=== PATIENT | male | born 1960 | race Caucasian/White ===

== ENCOUNTER 2020-09-14 17:43 | Inpatient (IN) | payer OTHER ==
[2020-09-14 19:16] LABS: BASO % 1.2 % (0-2.0); EOS % 1.5 % (0-4.5); HEMOGLOBIN 15.3 GM/dL (11.7-16.9); LYMPH % 14.6 % (8-40); MCH 30.3 pg (25.7-33.7); MCHC 34.7 g/dl (32.0-35.9); MEAN CELL VOLUME 87.3 fl (80-96); MONO % 6.3 % (3.8-10.2); NEUT % 76.4 % (42.8-82.8); RBC 5.04 M/mm3 (4.00-5.60); RDW 13.9 % (11.9-15.9)
[2020-09-14 19:25] LABS: INR 1.35 (0.83-1.09); PROTHROMBIN TIME (PATIENT) 16.5 SEC (9.7-13.0)
[2020-09-14 19:27] LABS: ACTIVATED PTT 18.9 SECONDS (25.2-36.5)
[2020-09-14 19:40] LABS: CHLORIDE 80 mmol/L (98-107); SODIUM 124 mmol/L (136-145)
[2020-09-14 19:42] LABS: ALBUMIN 4.2 g/dl (3.4-5.0); ANION GAP 10 MMOL/L (8-16); BLOOD UREA NITROGEN 18.6 mg/dL (7-18); CALCIUM 9.2 mg/dL (8.5-10.1); CO2 34 mmol/L (21-32); MAGNESIUM 2.9 mg/dL (1.8-2.4)
[2020-09-14 19:45] LABS: CREATININE 1.9 mg/dL (0.55-1.3); SGOT/AST 93 U/L (15-37); SGPT/ALT 97 U/L (13-61)
[2020-09-14 19:47] LABS: BILIRUBIN,TOTAL 1.4 mg/dL (0.2-1); TOT PROT 8.5 g/dl (6.4-8.2)
[2020-09-14 19:48] LABS: ALK PHOS 80 U/L (45-117)
[2020-09-14 19:52] LABS: MEAN PLT VOLUME 11.3 fl (7.5-11.1); PLATELET COUNT 248 K/MM3 (134-434); PLATELET ESTIMATE ADEQUATE
[2020-09-14] MEDS ORDERED: SODIUM CHLORIDE 0.9% 500 ML INFUS.BAG IV ONE (19:54)
[2020-09-14 20:08] LABS: GLUCOSE,RANDOM 684 mg/dL (74-106)
[2020-09-14] MEDS ORDERED: INSULIN (NOVOLOG) ASPART 100 UNITS/ML 10ML VIAL SQ STA (20:10)
[2020-09-14] MEDS ORDERED: LACTATED RINGERS SOLUTION 1,000 ML/1,000 ML INFUS.BAG IV STA ×2 (20:11→23:40)
[2020-09-14] MEDS ORDERED: IBUPROFEN 400 MG TABLET (FP) PO ONE (20:21)
[2020-09-14 20:57] LABS: VENOUS BASE EXCESS 7.9 mmol/L (-2-2); VENOUS O2 SATURATION 24.5 % (70-80); VENOUS PCO2 60.8 mmHg (38-52); VENOUS PH 7.381 (7.310-7.410)
[2020-09-14] MEDS ORDERED: INSULIN (NOVOLOG) ASPART 100 UNITS/ML 10ML VIAL SQ ONE (23:23)
[2020-09-15 01:33] LABS: PH,URINE 5.5 (5.0-8.0); URINE APPEARANCE CLEAR; URINE BILIRUBIN NEGATIVE (NEGATIVE); URINE COLOR YELLOW; URINE GLUCOSE (UA) 3+ (NEGATIVE); URINE KETONE NEGATIVE (NEGATIVE); URINE LEUK ESTERASE NEGATIVE (NEGATIVE); URINE NITRITE NEGATIVE (NEGATIVE); URINE PROTEIN NEGATIVE (NEGATIVE)
[2020-09-15 03:00] VITALS: BMI 36.4
[2020-09-15] MEDS ORDERED: SODIUM CHLORIDE 1,000 ML IV SCH (06:15)
[2020-09-15] MEDS ORDERED: INSULIN (NOVOLOG) ASPART 100 UNITS/ML 10ML VIAL SQ SCH (07:00)
[2020-09-15] MEDS: INSULIN SLIDING SCALE (NOVOLOG) 1 VIAL SQ SCH ×4 (07:04→21:14)
[2020-09-15 07:05] LABS: HEMATOCRIT 40.5 % (35.4-49); HEMOGLOBIN 14.3 GM/dL (11.7-16.9); MCHC 35.3 g/dl (32.0-35.9); MEAN PLT VOLUME 10.8 fl (7.5-11.1); PLATELET COUNT 162 K/MM3 (134-434); RBC 4.76 M/mm3 (4.00-5.60); RDW 13.9 % (11.9-15.9); WHITE BLOOD COUNT 8.2 K/mm3 (4.0-10.0)
[2020-09-15 07:22] LABS: ALBUMIN 3.8 g/dl (3.4-5.0)
[2020-09-15 07:23] LABS: CALCIUM 8.7 mg/dL (8.5-10.1); MAGNESIUM 2.3 mg/dL (1.8-2.4)
[2020-09-15 07:24] LABS: BLOOD UREA NITROGEN 16.2 mg/dL (7-18)
[2020-09-15 07:25] LABS: PHOSPHOROUS 3.1 mg/dL (2.5-4.9)
[2020-09-15 07:26] LABS: CREATININE 1.4 mg/dL (0.55-1.3)
[2020-09-15 07:27] LABS: N-TERMINAL BNP 194.7 pg/ml (5-125)
[2020-09-15 07:29] LABS: TOT PROT 7.4 g/dl (6.4-8.2)
[2020-09-15] MEDS: TAMSULOSIN HCL 0.4 MG CAP PO SCH (08:10)
[2020-09-15] MEDS: PANTOPRAZOLE 40 MG TABLET PO SCH (08:10)
[2020-09-15] MEDS ORDERED: BUDESONIDE/FORMETEROL FUMARATE 80/4.5 mcg INHALER IH SCH (08:30)
[2020-09-15] MEDS ORDERED: ALBUTEROL SO4 HFA INHALER IH SCH (08:30)
[2020-09-15 09:01] LABS: COCAINE, UR NEGATIVE ng/ml (CUTOFF=300); OPIATES, URI NEGATIVE ng/ml (CUTOFF=300); URINE BARBITURATES NEGATIVE ng/ml (CUTOFF=200); URINE BENZODIAZEPINES NEGATIVE ng/ml (CUTOFF=200)
[2020-09-15 09:02] LABS: PHENCYCLIDINE,URINE NEGATIVE ng/ml (CUTOFF=25)
[2020-09-15 09:03] LABS: URINE AMPHETAMINES NEGATIVE ng/ml (CUTOFF=500)
[2020-09-15 09:19] LABS: METHADONE, UR POSITIVE ng/ml (CUTOFF=300)
[2020-09-15] MEDS: POTASSIUM CHLORIDE TABS 20 MEQ TABLET.ER (FP) PO SCH ×2 (09:37→13:15)
[2020-09-15] MEDS ORDERED: PATIENT'S OWN MEDICATION (NON-FORMULARY) (Omeprazole [Omeprazole] 40 MG) PO SCH (10:00)
[2020-09-15] MEDS: ALBUTEROL SO4 HFA INHALER IH SCH ×2 (11:42→17:08)
[2020-09-15] MEDS: BUDESONIDE/FORMETEROL FUMARATE 80/4.5 mcg INHALER IH SCH ×2 (11:43→21:18)
[2020-09-15] MEDS: INSULIN (NOVOLOG) ASPART 100 UNITS/ML 10ML VIAL SQ ONE ×2 (11:57→11:58)
[2020-09-15] MEDS: LISINOPRIL 5 MG TABLET PO SCH (13:15)
[2020-09-15] MEDS ORDERED: INSULIN (NOVOLOG) ASPART 100 UNITS/ML 10ML VIAL SQ ONE (13:43)
[2020-09-15] MEDS: SODIUM CHLORIDE 1,000 ML IV SCH (15:18)
[2020-09-15 16:21] LABS: BLOOD UREA NITROGEN 18.2 mg/dL (7-18); CALCIUM 8.8 mg/dL (8.5-10.1)
[2020-09-15 16:25] LABS: CREATININE 1.5 mg/dL (0.55-1.3)
[2020-09-15] MEDS ORDERED: PT OWN MED DRAWER 7, Y5N ONE (17:01)
[2020-09-15] MEDS: RIVAROXABAN 10 MG TABLET PO SCH (17:08)
[2020-09-15 18:21] LABS: POTASSIUM 3.4 mmol/L (3.5-5.1)
[2020-09-15 18:23] LABS: CALCIUM 8.6 mg/dL (8.5-10.1)
[2020-09-15 18:24] LABS: BLOOD UREA NITROGEN 19.4 mg/dL (7-18)
[2020-09-15 18:27] LABS: CREATININE 1.4 mg/dL (0.55-1.3)
[2020-09-15] MEDS: INSULIN (LEVEMIR) 100 UNITS/ML UNITS SQ SCH (21:13)
[2020-09-15] MEDS: ATORVASTATIN CA 80 MG TABLET (FP) PO SCH (21:14)
[2020-09-15] MEDS ORDERED: INSULIN (LEVEMIR) 100 UNITS/ML UNITS SQ SCH (22:00)
[2020-09-16] MEDS: ALBUTEROL SO4 HFA INHALER IH SCH ×5 (00:24→23:32)
[2020-09-16] MEDS ORDERED: METHADONE HCL 5 MG TABLET PO SCH (06:00)
[2020-09-16] MEDS: PANTOPRAZOLE 40 MG TABLET PO SCH (06:37)
[2020-09-16] MEDS: INSULIN SLIDING SCALE (NOVOLOG) 1 VIAL SQ SCH ×4 (06:39→21:11)
[2020-09-16] MEDS: INSULIN (LEVEMIR) 100 UNITS/ML UNITS SQ SCH ×2 (07:27→21:11)
[2020-09-16 07:32] LABS: BASO % 0.7 % (0-2.0); EOS % 2.4 % (0-4.5); HEMATOCRIT 37.2 % (35.4-49); HEMOGLOBIN 12.9 GM/dL (11.7-16.9); LYMPH % 20.1 % (8-40); MCH 29.7 pg (25.7-33.7); MCHC 34.5 g/dl (32.0-35.9); MEAN PLT VOLUME 10.9 fl (7.5-11.1); MONO % 8.5 % (3.8-10.2); NEUT % 68.3 % (42.8-82.8); PLATELET COUNT 111 K/MM3 (134-434); RBC 4.33 M/mm3 (4.00-5.60); RDW 13.8 % (11.9-15.9); WHITE BLOOD COUNT 5.6 K/mm3 (4.0-10.0)
[2020-09-16 07:46] LABS: POTASSIUM 3.6 mmol/L (3.5-5.1)
[2020-09-16 07:55] LABS: ALBUMIN 3.4 g/dl (3.4-5.0); CALCIUM 8.5 mg/dL (8.5-10.1)
[2020-09-16 07:56] LABS: BLOOD UREA NITROGEN 20.4 mg/dL (7-18); MAGNESIUM 2.5 mg/dL (1.8-2.4)
[2020-09-16 07:59] LABS: CREATININE 1.2 mg/dL (0.55-1.3)
[2020-09-16 08:00] LABS: BILIRUBIN,TOTAL 0.8 mg/dL (0.2-1); TOT PROT 6.9 g/dl (6.4-8.2)
[2020-09-16] MEDS ORDERED: POTASSIUM CHLORIDE TABS 20 MEQ TABLET.ER (FP) PO ONE (09:00)
[2020-09-16] MEDS: TAMSULOSIN HCL 0.4 MG CAP PO SCH (09:45)
[2020-09-16] MEDS: LISINOPRIL 5 MG TABLET PO SCH (09:46)
[2020-09-16] MEDS: BUDESONIDE/FORMETEROL FUMARATE 80/4.5 mcg INHALER IH SCH ×2 (09:46→21:03)
[2020-09-16 09:56] LABS: PLATELET ESTIMATE DECREASED
[2020-09-16] MEDS: METHADONE 40 MG, METHADONE 10 MG, METHADONE 5 MG PO SCH (10:36)
[2020-09-16] MEDS: SODIUM CHLORIDE 1,000 ML IV SCH (17:36)
[2020-09-16] MEDS: RIVAROXABAN 10 MG TABLET PO SCH (18:13)
[2020-09-16] MEDS: ATORVASTATIN CA 80 MG TABLET (FP) PO SCH (21:02)
[2020-09-17] MEDS: SODIUM CHLORIDE 1,000 ML IV SCH (03:55)
[2020-09-17] MEDS: ALBUTEROL SO4 HFA INHALER IH SCH ×3 (05:26→17:59)
[2020-09-17] MEDS: METHADONE 40 MG, METHADONE 10 MG, METHADONE 5 MG PO SCH ×3 (05:26→21:52)
[2020-09-17] MEDS: PANTOPRAZOLE 40 MG TABLET PO SCH (06:00)
[2020-09-17] MEDS: INSULIN SLIDING SCALE (NOVOLOG) 1 VIAL SQ SCH ×4 (06:04→21:59)
[2020-09-17] MEDS: INSULIN (LEVEMIR) 100 UNITS/ML UNITS SQ SCH ×2 (06:04→21:59)
[2020-09-17 07:49] LABS: BASO % 0.6 % (0-2.0); EOS % 2.9 % (0-4.5); HEMATOCRIT 36.5 % (35.4-49); HEMOGLOBIN 12.3 GM/dL (11.7-16.9); LYMPH % 26.9 % (8-40); MCH 29.2 pg (25.7-33.7); MCHC 33.6 g/dl (32.0-35.9); MEAN CELL VOLUME 86.9 fl (80-96); MEAN PLT VOLUME 10.4 fl (7.5-11.1); MONO % 9.1 % (3.8-10.2); NEUT % 60.5 % (42.8-82.8); PLATELET COUNT 85 K/MM3 (134-434); RDW 14.4 % (11.9-15.9); WHITE BLOOD COUNT 3.2 K/mm3 (4.0-10.0)
[2020-09-17 08:18] LABS: POTASSIUM 3.3 mmol/L (3.5-5.1)
[2020-09-17 08:26] LABS: ALBUMIN 3.1 g/dl (3.4-5.0); BLOOD UREA NITROGEN 16.2 mg/dL (7-18); MAGNESIUM 2.4 mg/dL (1.8-2.4)
[2020-09-17 08:27] LABS: BILIRUBIN,TOTAL 0.6 mg/dL (0.2-1); TOT PROT 6.4 g/dl (6.4-8.2)
[2020-09-17 08:28] LABS: CALCIUM 8.3 mg/dL (8.5-10.1)
[2020-09-17] MEDS: TAMSULOSIN HCL 0.4 MG CAP PO SCH (09:49)
[2020-09-17] MEDS: LISINOPRIL 5 MG TABLET PO SCH (09:49)
[2020-09-17] MEDS: BUDESONIDE/FORMETEROL FUMARATE 80/4.5 mcg INHALER IH SCH ×2 (10:09→21:53)
[2020-09-17] MEDS ORDERED: POTASSIUM CHLORIDE ORAL LIQUID 20 MEQ/15 ML PO ONE (11:51)
[2020-09-17] MEDS: POTASSIUM CHLORIDE 10 MEQ in SODIUM CHLORIDE 1,000 ML IV SCH (14:09)
[2020-09-17] MEDS ORDERED: PT OWN MED DRAWER 7, Y5N ONE (16:39)
[2020-09-17] MEDS ORDERED: INSULIN (NOVOLOG) ASPART 100 UNITS/ML 10ML VIAL ONE (16:58)
[2020-09-17] MEDS: RIVAROXABAN 10 MG TABLET PO SCH (17:00)
[2020-09-17] MEDS ORDERED: METHADONE HCL 40 MG DISPERSABLE TABLET ONE (21:18)
[2020-09-17] MEDS ORDERED: METHADONE HCL 5 MG TABLET ONE (21:19)
[2020-09-17] MEDS ORDERED: METHADONE HCL 10 MG TABLET ONE (21:19)
[2020-09-17] MEDS: ATORVASTATIN CA 80 MG TABLET (FP) PO SCH (21:53)
[2020-09-18] MEDS: ALBUTEROL SO4 HFA INHALER IH SCH ×3 (00:20→13:07)
[2020-09-18] MEDS: INSULIN (LEVEMIR) 100 UNITS/ML UNITS SQ SCH ×2 (06:12→21:28)
[2020-09-18] MEDS: PANTOPRAZOLE 40 MG TABLET PO SCH (06:12)
[2020-09-18] MEDS: INSULIN SLIDING SCALE (NOVOLOG) 1 VIAL SQ SCH ×4 (06:13→21:29)
[2020-09-18 07:38] LABS: POTASSIUM 3.8 mmol/L (3.5-5.1)
[2020-09-18 07:46] LABS: CALCIUM 8.1 mg/dL (8.5-10.1)
[2020-09-18 07:48] LABS: BLOOD UREA NITROGEN 13.7 mg/dL (7-18); MAGNESIUM 2.2 mg/dL (1.8-2.4)
[2020-09-18 07:50] LABS: CREATININE 0.9 mg/dL (0.55-1.3)
[2020-09-18 07:51] LABS: BILIRUBIN,TOTAL 0.6 mg/dL (0.2-1)
[2020-09-18 08:02] LABS: BASO % 0.6 % (0-2.0); EOS % 3.8 % (0-4.5); HEMATOCRIT 34.5 % (35.4-49); HEMOGLOBIN 11.5 GM/dL (11.7-16.9); LYMPH % 31.6 % (8-40); MCH 29.5 pg (25.7-33.7); MCHC 33.5 g/dl (32.0-35.9); MEAN CELL VOLUME 88.2 fl (80-96); MEAN PLT VOLUME 10.3 fl (7.5-11.1); MONO % 11.1 % (3.8-10.2); NEUT % 52.9 % (42.8-82.8); PLATELET COUNT 77 K/MM3 (134-434); RBC 3.91 M/mm3 (4.00-5.60); RDW 14.5 % (11.9-15.9); WHITE BLOOD COUNT 2.8 K/mm3 (4.0-10.0)
[2020-09-18 09:04] LABS: INR 1.15 (0.83-1.09); PROTHROMBIN TIME (PATIENT) 14.1 SEC (9.7-13.0)
[2020-09-18] MEDS: POTASSIUM CHLORIDE 10 MEQ in SODIUM CHLORIDE 1,000 ML IV SCH (09:08)
[2020-09-18] MEDS: TAMSULOSIN HCL 0.4 MG CAP PO SCH (09:08)
[2020-09-18] MEDS: LISINOPRIL 5 MG TABLET PO SCH (09:08)
[2020-09-18] MEDS: BUDESONIDE/FORMETEROL FUMARATE 80/4.5 mcg INHALER IH SCH ×2 (09:09→21:31)
[2020-09-18] MEDS: LACTATED RINGERS SOLUTION 1,000 ML/1,000 ML INFUS.BAG IV SCH (13:05)
[2020-09-18] MEDS: RIVAROXABAN 10 MG TABLET PO SCH (17:06)
[2020-09-18] MEDS ORDERED: METHADONE HCL 40 MG DISPERSABLE TABLET ONE (20:59)
[2020-09-18] MEDS ORDERED: METHADONE HCL 10 MG TABLET ONE (21:00)
[2020-09-18] MEDS ORDERED: METHADONE HCL 5 MG TABLET ONE (21:00)
[2020-09-18] MEDS: METHADONE 40 MG, METHADONE 10 MG, METHADONE 5 MG PO SCH (21:25)
[2020-09-18] MEDS: ATORVASTATIN CA 80 MG TABLET (FP) PO SCH (21:28)
[2020-09-19] MEDS: INSULIN SLIDING SCALE (NOVOLOG) 1 VIAL SQ SCH ×4 (06:36→22:12)
[2020-09-19] MEDS: ALBUTEROL SO4 HFA INHALER IH SCH ×5 (06:51→23:09)
[2020-09-19] MEDS: INSULIN (LEVEMIR) 100 UNITS/ML UNITS SQ SCH ×2 (06:53→22:11)
[2020-09-19] MEDS: TAMSULOSIN HCL 0.4 MG CAP PO SCH (09:50)
[2020-09-19] MEDS: LISINOPRIL 5 MG TABLET PO SCH (09:50)
[2020-09-19] MEDS: BUDESONIDE/FORMETEROL FUMARATE 80/4.5 mcg INHALER IH SCH ×2 (09:50→22:10)
[2020-09-19] MEDS ORDERED: INSULIN (NOVOLOG) ASPART 100 UNITS/ML 10ML VIAL ONE (11:06)
[2020-09-19 11:23] LABS: BASO % 0.3 % (0-2.0); EOS % 0.8 % (0-4.5); HEMATOCRIT 36.4 % (35.4-49); HEMOGLOBIN 12.1 GM/dL (11.7-16.9); LYMPH % 7.8 % (8-40); MCHC 33.3 g/dl (32.0-35.9); MEAN CELL VOLUME 90.2 fl (80-96); MEAN PLT VOLUME 10.2 fl (7.5-11.1); MONO % 5.7 % (3.8-10.2); NEUT % 85.4 % (42.8-82.8); PLATELET COUNT 69 K/MM3 (134-434); RBC 4.03 M/mm3 (4.00-5.60); RDW 14.9 % (11.9-15.9); WHITE BLOOD COUNT 3.2 K/mm3 (4.0-10.0)
[2020-09-19 11:49] LABS: POTASSIUM 4.7 mmol/L (3.5-5.1)
[2020-09-19 11:50] LABS: ALBUMIN 3.1 g/dl (3.4-5.0); BLOOD UREA NITROGEN 17.2 mg/dL (7-18); CALCIUM 8.6 mg/dL (8.5-10.1)
[2020-09-19 11:51] LABS: MAGNESIUM 1.8 mg/dL (1.8-2.4)
[2020-09-19 11:55] LABS: BILIRUBIN,TOTAL 0.9 mg/dL (0.2-1); TOT PROT 6.3 g/dl (6.4-8.2)
[2020-09-19 17:26] LABS: PH,URINE 8.5 (5.0-8.0); URINE APPEARANCE CLEAR; URINE BILIRUBIN NEGATIVE (NEGATIVE); URINE COLOR YELLOW; URINE GLUCOSE (UA) 2+ (NEGATIVE); URINE KETONE NEGATIVE (NEGATIVE); URINE LEUK ESTERASE NEGATIVE (NEGATIVE); URINE NITRITE NEGATIVE (NEGATIVE); URINE PROTEIN NEGATIVE (NEGATIVE)
[2020-09-19] MEDS ORDERED: PT OWN MED DRAWER 7, Y5N ONE (17:40)
[2020-09-19] MEDS: LACTATED RINGERS SOLUTION 1,000 ML/1,000 ML INFUS.BAG IV SCH (17:41)
[2020-09-19] MEDS: RIVAROXABAN 10 MG TABLET PO SCH (17:41)
[2020-09-19] MEDS ORDERED: METHADONE HCL 5 MG TABLET ONE (21:02)
[2020-09-19] MEDS ORDERED: METHADONE HCL 40 MG DISPERSABLE TABLET ONE (21:02)
[2020-09-19] MEDS ORDERED: METHADONE HCL 10 MG TABLET ONE (21:03)
[2020-09-19] MEDS: METHADONE 40 MG, METHADONE 10 MG, METHADONE 5 MG PO SCH (22:09)
[2020-09-19] MEDS: ATORVASTATIN CA 80 MG TABLET (FP) PO SCH (22:10)
[2020-09-19] MEDS ORDERED: ACETAMINOPHEN 325 MG TABLET (FP) PO ONE (23:00)
[2020-09-20] MEDS ORDERED: VANCOMYCIN 1 GM in D5W (PRE-DOCKED) 1,000 MG/250 ML IVPB ONE (02:19)
[2020-09-20] MEDS: INSULIN (LEVEMIR) 100 UNITS/ML UNITS SQ SCH ×2 (06:37→22:02)
[2020-09-20] MEDS: ALBUTEROL SO4 HFA INHALER IH SCH ×3 (06:37→17:20)
[2020-09-20] MEDS: INSULIN SLIDING SCALE (NOVOLOG) 1 VIAL SQ SCH ×4 (06:37→22:16)
[2020-09-20 07:27] LABS: POTASSIUM 4.1 mmol/L (3.5-5.1)
[2020-09-20 07:30] LABS: CALCIUM 8.3 mg/dL (8.5-10.1)
[2020-09-20 07:31] LABS: ALBUMIN 2.9 g/dl (3.4-5.0); MAGNESIUM 1.8 mg/dL (1.8-2.4)
[2020-09-20 07:33] LABS: CREATININE 0.9 mg/dL (0.55-1.3)
[2020-09-20 07:35] LABS: TOT PROT 5.9 g/dl (6.4-8.2)
[2020-09-20 07:42] LABS: BASO % 0.8 % (0-2.0); EOS % 1.6 % (0-4.5); HEMATOCRIT 33.7 % (35.4-49); HEMOGLOBIN 11.2 GM/dL (11.7-16.9); LYMPH % 20.2 % (8-40); MCH 29.5 pg (25.7-33.7); MCHC 33.3 g/dl (32.0-35.9); MEAN CELL VOLUME 88.7 fl (80-96); NEUT % 63.4 % (42.8-82.8); PLATELET COUNT 65 K/MM3 (134-434); RBC 3.81 M/mm3 (4.00-5.60); RDW 14.2 % (11.9-15.9); WHITE BLOOD COUNT 2.4 K/mm3 (4.0-10.0)
[2020-09-20] MEDS: LISINOPRIL 5 MG TABLET PO SCH (09:36)
[2020-09-20] MEDS: TAMSULOSIN HCL 0.4 MG CAP PO SCH (09:36)
[2020-09-20] MEDS: BUDESONIDE/FORMETEROL FUMARATE 80/4.5 mcg INHALER IH SCH ×2 (09:37→21:58)
[2020-09-20] MEDS: VANCOMYCIN 1,250 MG in DEXTROSE 5%-WATER - 250 ML IVPB SCH ×2 (12:50→22:52)
[2020-09-20] MEDS ORDERED: SODIUM CHLORIDE 1,000 ML IV STA (14:12)
[2020-09-20] MEDS: ACETAMINOPHEN/CAFFEINE/BUTALBITAL 1 TAB PO PRN (14:41)
[2020-09-20] MEDS: RIVAROXABAN 10 MG TABLET PO SCH (18:01)
[2020-09-20] MEDS ORDERED: METHADONE HCL 5 MG TABLET ONE (21:00)
[2020-09-20] MEDS ORDERED: METHADONE HCL 40 MG DISPERSABLE TABLET ONE (21:00)
[2020-09-20] MEDS ORDERED: METHADONE HCL 10 MG TABLET ONE (21:00)
[2020-09-20] MEDS ORDERED: INSULIN (NOVOLOG) ASPART 100 UNITS/ML 10ML VIAL ONE (21:01)
[2020-09-20] MEDS: METHADONE 40 MG, METHADONE 10 MG, METHADONE 5 MG PO SCH (21:58)
[2020-09-20] MEDS: ATORVASTATIN CA 80 MG TABLET (FP) PO SCH (21:59)
[2020-09-21] MEDS: ALBUTEROL SO4 HFA INHALER IH SCH ×5 (00:15→23:32)
[2020-09-21] MEDS: INSULIN (LEVEMIR) 100 UNITS/ML UNITS SQ SCH ×2 (06:30→21:38)
[2020-09-21] MEDS: INSULIN SLIDING SCALE (NOVOLOG) 1 VIAL SQ SCH ×4 (06:32→21:39)
[2020-09-21 08:13] LABS: BASO % 0.7 % (0-2.0); EOS % 2.7 % (0-4.5); HEMATOCRIT 35.6 % (35.4-49); HEMOGLOBIN 11.6 GM/dL (11.7-16.9); LYMPH % 18.2 % (8-40); MCH 29.1 pg (25.7-33.7); MCHC 32.7 g/dl (32.0-35.9); MEAN CELL VOLUME 88.9 fl (80-96); MEAN PLT VOLUME 9.7 fl (7.5-11.1); MONO % 12.8 % (3.8-10.2); NEUT % 65.6 % (42.8-82.8); PLATELET COUNT 70 K/MM3 (134-434); RDW 14.6 % (11.9-15.9); WHITE BLOOD COUNT 2.6 K/mm3 (4.0-10.0)
[2020-09-21 08:39] LABS: POTASSIUM 3.9 mmol/L (3.5-5.1)
[2020-09-21 08:45] LABS: ALBUMIN 2.9 g/dl (3.4-5.0); BLOOD UREA NITROGEN 12.6 mg/dL (7-18); CALCIUM 8.5 mg/dL (8.5-10.1)
[2020-09-21 08:46] LABS: MAGNESIUM 1.8 mg/dL (1.8-2.4)
[2020-09-21 08:48] LABS: CREATININE 0.9 mg/dL (0.55-1.3)
[2020-09-21 08:49] LABS: BILIRUBIN,TOTAL 0.8 mg/dL (0.2-1); TOT PROT 6.3 g/dl (6.4-8.2)
[2020-09-21] MEDS: LISINOPRIL 5 MG TABLET PO SCH (09:51)
[2020-09-21] MEDS: TAMSULOSIN HCL 0.4 MG CAP PO SCH (09:51)
[2020-09-21] MEDS: BUDESONIDE/FORMETEROL FUMARATE 80/4.5 mcg INHALER IH SCH ×2 (09:52→21:41)
[2020-09-21] MEDS: ACETAMINOPHEN/CAFFEINE/BUTALBITAL 1 TAB PO PRN (09:55)
[2020-09-21] MEDS: VANCOMYCIN 1,250 MG in DEXTROSE 5%-WATER - 250 ML IVPB SCH ×2 (11:42→23:13)
[2020-09-21] MEDS: RIVAROXABAN 10 MG TABLET PO SCH (18:08)
[2020-09-21] MEDS ORDERED: PT OWN MED DRAWER 7, Y5N ONE ×2 (19:06→23:05)
[2020-09-21] MEDS ORDERED: METHADONE HCL 10 MG TABLET ONE (20:45)
[2020-09-21] MEDS ORDERED: METHADONE HCL 5 MG TABLET ONE (20:45)
[2020-09-21] MEDS ORDERED: METHADONE HCL 40 MG DISPERSABLE TABLET ONE (20:45)
[2020-09-21] MEDS: METHADONE 40 MG, METHADONE 10 MG, METHADONE 5 MG PO SCH (21:37)
[2020-09-21] MEDS: ATORVASTATIN CA 80 MG TABLET (FP) PO SCH (21:37)
[2020-09-22] MEDS: ALBUTEROL SO4 HFA INHALER IH SCH ×4 (05:28→22:59)
[2020-09-22] MEDS: INSULIN SLIDING SCALE (NOVOLOG) 1 VIAL SQ SCH ×4 (06:02→21:01)
[2020-09-22] MEDS: INSULIN (LEVEMIR) 100 UNITS/ML UNITS SQ SCH ×2 (06:03→21:01)
[2020-09-22] MEDS ORDERED: INSULIN (NOVOLOG) ASPART 100 UNITS/ML 10ML VIAL ONE ×2 (06:13→20:07)
[2020-09-22 08:07] LABS: BASO % 0.7 % (0-2.0); EOS % 4.2 % (0-4.5); HEMATOCRIT 33.4 % (35.4-49); HEMOGLOBIN 11.1 GM/dL (11.7-16.9); LYMPH % 26.1 % (8-40); MCH 29.2 pg (25.7-33.7); MCHC 33.2 g/dl (32.0-35.9); MEAN CELL VOLUME 87.9 fl (80-96); MEAN PLT VOLUME 9.3 fl (7.5-11.1); MONO % 13.7 % (3.8-10.2); NEUT % 55.3 % (42.8-82.8); PLATELET COUNT 80 K/MM3 (134-434); RDW 14.6 % (11.9-15.9); WHITE BLOOD COUNT 2.6 K/mm3 (4.0-10.0)
[2020-09-22 08:19] LABS: POTASSIUM 4.3 mmol/L (3.5-5.1)
[2020-09-22 08:23] LABS: ALBUMIN 2.8 g/dl (3.4-5.0); BLOOD UREA NITROGEN 13.4 mg/dL (7-18)
[2020-09-22 08:24] LABS: CALCIUM 8.7 mg/dL (8.5-10.1)
[2020-09-22 08:28] LABS: BILIRUBIN,TOTAL 0.5 mg/dL (0.2-1); TOT PROT 5.9 g/dl (6.4-8.2)
[2020-09-22] MEDS ORDERED: PT OWN MED DRAWER 7, Y5N ONE ×4 (09:11→22:34)
[2020-09-22] MEDS: TAMSULOSIN HCL 0.4 MG CAP PO SCH (09:13)
[2020-09-22] MEDS: ACETAMINOPHEN/CAFFEINE/BUTALBITAL 1 TAB PO PRN (09:14)
[2020-09-22] MEDS: LISINOPRIL 5 MG TABLET PO SCH (09:15)
[2020-09-22] MEDS: BUDESONIDE/FORMETEROL FUMARATE 80/4.5 mcg INHALER IH SCH ×2 (09:23→21:03)
[2020-09-22] MEDS: VANCOMYCIN 1,250 MG in DEXTROSE 5%-WATER - 250 ML IVPB SCH ×2 (11:21→23:00)
[2020-09-22] MEDS: RIVAROXABAN 10 MG TABLET PO SCH (17:32)
[2020-09-22] MEDS ORDERED: METHADONE HCL 5 MG TABLET ONE (20:05)
[2020-09-22] MEDS ORDERED: METHADONE HCL 40 MG DISPERSABLE TABLET ONE (20:06)
[2020-09-22] MEDS ORDERED: METHADONE HCL 10 MG TABLET ONE (20:06)
[2020-09-22] MEDS: ATORVASTATIN CA 80 MG TABLET (FP) PO SCH (21:02)
[2020-09-22] MEDS: METHADONE 40 MG, METHADONE 10 MG, METHADONE 5 MG PO SCH (21:02)
[2020-09-23] MEDS: INSULIN (LEVEMIR) 100 UNITS/ML UNITS SQ SCH ×2 (06:07→21:12)
[2020-09-23] MEDS: ALBUTEROL SO4 HFA INHALER IH SCH ×3 (06:09→17:11)
[2020-09-23] MEDS: INSULIN SLIDING SCALE (NOVOLOG) 1 VIAL SQ SCH ×4 (06:11→21:13)
[2020-09-23] MEDS ORDERED: PT OWN MED DRAWER 7, Y5N ONE ×3 (08:45→21:03)
[2020-09-23] MEDS: LISINOPRIL 5 MG TABLET PO SCH (09:52)
[2020-09-23] MEDS: TAMSULOSIN HCL 0.4 MG CAP PO SCH (09:52)
[2020-09-23] MEDS: BUDESONIDE/FORMETEROL FUMARATE 80/4.5 mcg INHALER IH SCH ×2 (09:53→21:26)
[2020-09-23] MEDS: NAFCILLIN - 2 GM in DEXTROSE 5%-WATER - 100 ML IVPB SCH ×3 (11:27→21:09)
[2020-09-23] MEDS ORDERED: INSULIN (NOVOLOG) ASPART 100 UNITS/ML 10ML VIAL ONE ×2 (11:29→21:02)
[2020-09-23] MEDS ORDERED: ACETAMINOPHEN/CAFFEINE/BUTALBITAL 1 TAB PO PRN (15:19)
[2020-09-23] MEDS: RIVAROXABAN 10 MG TABLET PO SCH (17:11)
[2020-09-23] MEDS ORDERED: METHADONE HCL 40 MG DISPERSABLE TABLET ONE (21:01)
[2020-09-23] MEDS ORDERED: METHADONE HCL 5 MG TABLET ONE (21:01)
[2020-09-23] MEDS ORDERED: METHADONE HCL 10 MG TABLET ONE (21:01)
[2020-09-23] MEDS: ATORVASTATIN CA 80 MG TABLET (FP) PO SCH (21:09)
[2020-09-23] MEDS: METHADONE 40 MG, METHADONE 10 MG, METHADONE 5 MG PO SCH (21:10)
[2020-09-24] MEDS: ALBUTEROL SO4 HFA INHALER IH SCH ×4 (00:53→17:17)
[2020-09-24] MEDS ORDERED: PT OWN MED DRAWER 7, Y5N ONE ×2 (01:58→06:14)
[2020-09-24] MEDS: NAFCILLIN - 2 GM in DEXTROSE 5%-WATER - 100 ML IVPB SCH ×4 (02:00→20:55)
[2020-09-24] MEDS: INSULIN SLIDING SCALE (NOVOLOG) 1 VIAL SQ SCH ×4 (06:01→21:01)
[2020-09-24] MEDS: INSULIN (LEVEMIR) 100 UNITS/ML UNITS SQ SCH ×2 (06:02→21:01)
[2020-09-24] MEDS ORDERED: INSULIN (NOVOLOG) ASPART 100 UNITS/ML 10ML VIAL ONE ×2 (06:15→11:26)
[2020-09-24 08:47] LABS: EOS % 3.5 % (0-4.5); HEMATOCRIT 38.6 % (35.4-49); HEMOGLOBIN 12.6 GM/dL (11.7-16.9); LYMPH % 30.8 % (8-40); MCH 28.8 pg (25.7-33.7); MCHC 32.6 g/dl (32.0-35.9); MEAN CELL VOLUME 88.2 fl (80-96); MEAN PLT VOLUME 9.1 fl (7.5-11.1); MONO % 9.4 % (3.8-10.2); NEUT % 55.3 % (42.8-82.8); PLATELET COUNT 142 K/MM3 (134-434); RBC 4.37 M/mm3 (4.00-5.60); RDW 14.5 % (11.9-15.9); WHITE BLOOD COUNT 4.5 K/mm3 (4.0-10.0)
[2020-09-24] MEDS: TAMSULOSIN HCL 0.4 MG CAP PO SCH (09:00)
[2020-09-24 09:02] LABS: POTASSIUM 4.7 mmol/L (3.5-5.1)
[2020-09-24 09:03] LABS: CALCIUM 9.3 mg/dL (8.5-10.1)
[2020-09-24 09:04] LABS: ALBUMIN 3.1 g/dl (3.4-5.0); BLOOD UREA NITROGEN 17.3 mg/dL (7-18); MAGNESIUM 2.2 mg/dL (1.8-2.4)
[2020-09-24 09:07] LABS: CREATININE 1.1 mg/dL (0.55-1.3)
[2020-09-24 09:08] LABS: BILIRUBIN,TOTAL 0.5 mg/dL (0.2-1); TOT PROT 6.9 g/dl (6.4-8.2)
[2020-09-24] MEDS: LISINOPRIL 5 MG TABLET PO SCH (09:16)
[2020-09-24] MEDS: BUDESONIDE/FORMETEROL FUMARATE 80/4.5 mcg INHALER IH SCH ×2 (09:18→21:02)
[2020-09-24] MEDS: RIVAROXABAN 10 MG TABLET PO SCH (17:16)
[2020-09-24] MEDS ORDERED: METHADONE HCL 10 MG TABLET ONE (20:46)
[2020-09-24] MEDS ORDERED: METHADONE HCL 5 MG TABLET ONE (20:46)
[2020-09-24] MEDS ORDERED: METHADONE HCL 40 MG DISPERSABLE TABLET ONE (20:47)
[2020-09-24] MEDS: METHADONE 40 MG, METHADONE 10 MG, METHADONE 5 MG PO SCH (21:00)
[2020-09-24] MEDS: ATORVASTATIN CA 80 MG TABLET (FP) PO SCH (21:00)
[2020-09-25] MEDS: ALBUTEROL SO4 HFA INHALER IH SCH ×4 (00:20→17:19)
[2020-09-25] MEDS: NAFCILLIN - 2 GM in DEXTROSE 5%-WATER - 100 ML IVPB SCH ×4 (02:42→21:28)
[2020-09-25] MEDS: INSULIN (LEVEMIR) 100 UNITS/ML UNITS SQ SCH ×2 (06:12→21:29)
[2020-09-25] MEDS: INSULIN SLIDING SCALE (NOVOLOG) 1 VIAL SQ SCH ×4 (06:13→21:29)
[2020-09-25 06:39] LABS: BASO % 0.7 % (0-2.0); HEMATOCRIT 38.2 % (35.4-49); HEMOGLOBIN 12.6 GM/dL (11.7-16.9); LYMPH % 28.9 % (8-40); MCH 29.2 pg (25.7-33.7); MEAN CELL VOLUME 88.5 fl (80-96); MEAN PLT VOLUME 9.4 fl (7.5-11.1); MONO % 8.3 % (3.8-10.2); NEUT % 59.1 % (42.8-82.8); PLATELET COUNT 143 K/MM3 (134-434); RBC 4.32 M/mm3 (4.00-5.60); RDW 14.2 % (11.9-15.9); WHITE BLOOD COUNT 4.8 K/mm3 (4.0-10.0)
[2020-09-25 06:46] LABS: POTASSIUM 4.4 mmol/L (3.5-5.1)
[2020-09-25 06:52] LABS: CALCIUM 8.7 mg/dL (8.5-10.1)
[2020-09-25 06:53] LABS: ALBUMIN 3.1 g/dl (3.4-5.0)
[2020-09-25 06:54] LABS: MAGNESIUM 1.9 mg/dL (1.8-2.4)
[2020-09-25 06:57] LABS: BILIRUBIN,TOTAL 0.7 mg/dL (0.2-1)
[2020-09-25 06:58] LABS: TOT PROT 6.6 g/dl (6.4-8.2)
[2020-09-25] MEDS: TAMSULOSIN HCL 0.4 MG CAP PO SCH (08:45)
[2020-09-25] MEDS ORDERED: PT OWN MED DRAWER 7, Y5N ONE ×3 (10:03→17:18)
[2020-09-25] MEDS: LISINOPRIL 5 MG TABLET PO SCH (10:09)
[2020-09-25] MEDS: BUDESONIDE/FORMETEROL FUMARATE 80/4.5 mcg INHALER IH SCH ×2 (10:10→21:29)
[2020-09-25] MEDS ORDERED: INSULIN (NOVOLOG) ASPART 100 UNITS/ML 10ML VIAL ONE ×2 (16:22→21:14)
[2020-09-25] MEDS: RIVAROXABAN 10 MG TABLET PO SCH (17:19)
[2020-09-25] MEDS ORDERED: METHADONE HCL 10 MG TABLET ONE (21:13)
[2020-09-25] MEDS ORDERED: METHADONE HCL 40 MG DISPERSABLE TABLET ONE (21:13)
[2020-09-25] MEDS ORDERED: METHADONE HCL 5 MG TABLET ONE (21:13)
[2020-09-25] MEDS: METHADONE 40 MG, METHADONE 10 MG, METHADONE 5 MG PO SCH (21:28)
[2020-09-25] MEDS: ATORVASTATIN CA 80 MG TABLET (FP) PO SCH (21:29)
[2020-09-26] MEDS: ALBUTEROL SO4 HFA INHALER IH SCH ×4 (00:03→17:18)
[2020-09-26] MEDS: NAFCILLIN - 2 GM in DEXTROSE 5%-WATER - 100 ML IVPB SCH ×4 (02:11→21:21)
[2020-09-26 06:25] LABS: BASO % 0.7 % (0-2.0); EOS % 2.3 % (0-4.5); HEMATOCRIT 39.3 % (35.4-49); HEMOGLOBIN 12.7 GM/dL (11.7-16.9); LYMPH % 27.3 % (8-40); MCH 28.9 pg (25.7-33.7); MCHC 32.4 g/dl (32.0-35.9); MEAN CELL VOLUME 89.2 fl (80-96); MONO % 7.4 % (3.8-10.2); NEUT % 62.3 % (42.8-82.8); PLATELET COUNT 147 K/MM3 (134-434); RBC 4.41 M/mm3 (4.00-5.60); RDW 14.2 % (11.9-15.9); WHITE BLOOD COUNT 4.4 K/mm3 (4.0-10.0)
[2020-09-26 06:36] LABS: POTASSIUM 4.2 mmol/L (3.5-5.1)
[2020-09-26] MEDS: INSULIN (LEVEMIR) 100 UNITS/ML UNITS SQ SCH ×2 (06:37→21:33)
[2020-09-26] MEDS: INSULIN SLIDING SCALE (NOVOLOG) 1 VIAL SQ SCH ×4 (06:38→21:26)
[2020-09-26 06:40] LABS: CALCIUM 9.3 mg/dL (8.5-10.1)
[2020-09-26 06:41] LABS: ALBUMIN 3.2 g/dl (3.4-5.0); MAGNESIUM 2.4 mg/dL (1.8-2.4)
[2020-09-26 06:44] LABS: CREATININE 1.1 mg/dL (0.55-1.3)
[2020-09-26 06:45] LABS: BILIRUBIN,TOTAL 0.7 mg/dL (0.2-1)
[2020-09-26] MEDS: TAMSULOSIN HCL 0.4 MG CAP PO SCH (09:41)
[2020-09-26] MEDS ORDERED: PT OWN MED DRAWER 7, Y5N ONE ×3 (09:41→21:06)
[2020-09-26] MEDS: LISINOPRIL 5 MG TABLET PO SCH (09:41)
[2020-09-26] MEDS: BUDESONIDE/FORMETEROL FUMARATE 80/4.5 mcg INHALER IH SCH ×2 (09:42→21:25)
[2020-09-26] MEDS ORDERED: INSULIN (NOVOLOG) ASPART 100 UNITS/ML 10ML VIAL ONE (12:15)
[2020-09-26] MEDS: RIVAROXABAN 10 MG TABLET PO SCH (17:17)
[2020-09-26] MEDS ORDERED: METHADONE HCL 10 MG TABLET ONE (20:54)
[2020-09-26] MEDS ORDERED: METHADONE HCL 40 MG DISPERSABLE TABLET ONE (20:54)
[2020-09-26] MEDS ORDERED: METHADONE HCL 5 MG TABLET ONE (20:54)
[2020-09-26] MEDS: ATORVASTATIN CA 80 MG TABLET (FP) PO SCH (21:21)
[2020-09-26] MEDS: METHADONE 40 MG, METHADONE 10 MG, METHADONE 5 MG PO SCH (21:21)
[2020-09-27] MEDS: ALBUTEROL SO4 HFA INHALER IH SCH ×4 (00:30→17:06)
[2020-09-27] MEDS ORDERED: PT OWN MED DRAWER 7, Y5N ONE ×2 (02:37→20:53)
[2020-09-27] MEDS: NAFCILLIN - 2 GM in DEXTROSE 5%-WATER - 100 ML IVPB SCH ×4 (02:42→21:12)
[2020-09-27 06:32] LABS: BASO % 0.9 % (0-2.0); EOS % 2.5 % (0-4.5); HEMATOCRIT 39.1 % (35.4-49); HEMOGLOBIN 12.9 GM/dL (11.7-16.9); LYMPH % 25.2 % (8-40); MCH 29.2 pg (25.7-33.7); MEAN CELL VOLUME 88.6 fl (80-96); MEAN PLT VOLUME 9.1 fl (7.5-11.1); NEUT % 63.4 % (42.8-82.8); PLATELET COUNT 166 K/MM3 (134-434); RBC 4.41 M/mm3 (4.00-5.60); RDW 14.2 % (11.9-15.9); WHITE BLOOD COUNT 4.7 K/mm3 (4.0-10.0)
[2020-09-27] MEDS: INSULIN SLIDING SCALE (NOVOLOG) 1 VIAL SQ SCH ×4 (06:38→21:13)
[2020-09-27] MEDS: INSULIN (LEVEMIR) 100 UNITS/ML UNITS SQ SCH ×2 (06:40→21:17)
[2020-09-27 07:04] LABS: POTASSIUM 3.9 mmol/L (3.5-5.1)
[2020-09-27 07:09] LABS: CALCIUM 8.8 mg/dL (8.5-10.1)
[2020-09-27 07:10] LABS: ALBUMIN 3.4 g/dl (3.4-5.0); BLOOD UREA NITROGEN 16.2 mg/dL (7-18); MAGNESIUM 2.2 mg/dL (1.8-2.4)
[2020-09-27 07:13] LABS: CREATININE 1.2 mg/dL (0.55-1.3)
[2020-09-27 07:14] LABS: BILIRUBIN,TOTAL 0.6 mg/dL (0.2-1)
[2020-09-27] MEDS: BUDESONIDE/FORMETEROL FUMARATE 80/4.5 mcg INHALER IH SCH ×2 (09:07→21:13)
[2020-09-27] MEDS: TAMSULOSIN HCL 0.4 MG CAP PO SCH (09:07)
[2020-09-27] MEDS: LISINOPRIL 5 MG TABLET PO SCH (09:07)
[2020-09-27] MEDS ORDERED: INSULIN (NOVOLOG) ASPART 100 UNITS/ML 10ML VIAL ONE (10:30)
[2020-09-27] MEDS: RIVAROXABAN 10 MG TABLET PO SCH (17:06)
[2020-09-27] MEDS ORDERED: METHADONE HCL 5 MG TABLET ONE (20:52)
[2020-09-27] MEDS ORDERED: METHADONE HCL 10 MG TABLET ONE (20:52)
[2020-09-27] MEDS ORDERED: METHADONE HCL 40 MG DISPERSABLE TABLET ONE (20:52)
[2020-09-27] MEDS: ATORVASTATIN CA 80 MG TABLET (FP) PO SCH (21:11)
[2020-09-27] MEDS: METHADONE 40 MG, METHADONE 10 MG, METHADONE 5 MG PO SCH (21:11)
[2020-09-28] MEDS: ALBUTEROL SO4 HFA INHALER IH SCH ×4 (00:07→17:48)
[2020-09-28] MEDS ORDERED: PT OWN MED DRAWER 7, Y5N ONE ×2 (03:36→20:33)
[2020-09-28] MEDS: NAFCILLIN - 2 GM in DEXTROSE 5%-WATER - 100 ML IVPB SCH ×4 (03:37→20:36)
[2020-09-28] MEDS: INSULIN SLIDING SCALE (NOVOLOG) 1 VIAL SQ SCH ×4 (05:59→23:01)
[2020-09-28] MEDS: INSULIN (LEVEMIR) 100 UNITS/ML UNITS SQ SCH ×2 (06:02→22:40)
[2020-09-28] MEDS ORDERED: INSULIN (NOVOLOG) ASPART 100 UNITS/ML 10ML VIAL ONE (06:44)
[2020-09-28 06:52] LABS: EOS % 2.2 % (0-4.5); HEMOGLOBIN 12.8 GM/dL (11.7-16.9); LYMPH % 25.3 % (8-40); MCH 29.4 pg (25.7-33.7); MCHC 32.9 g/dl (32.0-35.9); MEAN CELL VOLUME 89.3 fl (80-96); MEAN PLT VOLUME 9.1 fl (7.5-11.1); MONO % 7.4 % (3.8-10.2); NEUT % 64.1 % (42.8-82.8); PLATELET COUNT 181 K/MM3 (134-434); RBC 4.36 M/mm3 (4.00-5.60); RDW 14.6 % (11.9-15.9); WHITE BLOOD COUNT 5.5 K/mm3 (4.0-10.0)
[2020-09-28 07:09] LABS: POTASSIUM 3.8 mmol/L (3.5-5.1)
[2020-09-28 07:13] LABS: CALCIUM 8.9 mg/dL (8.5-10.1)
[2020-09-28 07:14] LABS: ALBUMIN 3.4 g/dl (3.4-5.0); BLOOD UREA NITROGEN 19.6 mg/dL (7-18); MAGNESIUM 2.4 mg/dL (1.8-2.4)
[2020-09-28 07:16] LABS: CREATININE 1.1 mg/dL (0.55-1.3)
[2020-09-28 07:18] LABS: TOT PROT 7.1 g/dl (6.4-8.2)
[2020-09-28] MEDS: BUDESONIDE/FORMETEROL FUMARATE 80/4.5 mcg INHALER IH SCH ×2 (10:02→22:42)
[2020-09-28] MEDS: TAMSULOSIN HCL 0.4 MG CAP PO SCH (10:02)
[2020-09-28] MEDS: LISINOPRIL 5 MG TABLET PO SCH (10:02)
[2020-09-28] MEDS ORDERED: SODIUM CHLORIDE 0.45% 1,000 ML IV SCH (14:45)
[2020-09-28] MEDS: RIVAROXABAN 10 MG TABLET PO SCH (17:47)
[2020-09-28] MEDS ORDERED: METHADONE HCL 10 MG TABLET PO SCH (22:00)
[2020-09-28] MEDS: ATORVASTATIN CA 80 MG TABLET (FP) PO SCH (22:41)
[2020-09-28] MEDS ORDERED: METHADONE HCL 10 MG TABLET ONE (22:55)
[2020-09-28] MEDS ORDERED: METHADONE HCL 40 MG DISPERSABLE TABLET ONE (22:55)
[2020-09-28] MEDS ORDERED: METHADONE HCL 5 MG TABLET ONE (22:55)
[2020-09-28] MEDS: METHADONE 40 MG, METHADONE 10 MG, METHADONE 5 MG PO SCH (23:01)
[2020-09-29] MEDS: ALBUTEROL SO4 HFA INHALER IH SCH ×5 (00:03→23:01)
[2020-09-29] MEDS: NAFCILLIN - 2 GM in DEXTROSE 5%-WATER - 100 ML IVPB SCH ×4 (02:07→21:15)
[2020-09-29] MEDS: INSULIN (LEVEMIR) 100 UNITS/ML UNITS SQ SCH ×4 (06:07→23:02)
[2020-09-29] MEDS: INSULIN SLIDING SCALE (NOVOLOG) 1 VIAL SQ SCH ×4 (06:18→23:01)
[2020-09-29 07:59] LABS: BASO % 0.8 % (0-2.0); EOS % 2.7 % (0-4.5); HEMATOCRIT 37.3 % (35.4-49); HEMOGLOBIN 12.3 GM/dL (11.7-16.9); LYMPH % 29.4 % (8-40); MEAN CELL VOLUME 87.8 fl (80-96); MEAN PLT VOLUME 8.7 fl (7.5-11.1); MONO % 8.6 % (3.8-10.2); NEUT % 58.5 % (42.8-82.8); PLATELET COUNT 151 K/MM3 (134-434); RBC 4.25 M/mm3 (4.00-5.60); RDW 14.6 % (11.9-15.9); WHITE BLOOD COUNT 4.3 K/mm3 (4.0-10.0)
[2020-09-29 08:06] LABS: INR 1.27 (0.83-1.09); PROTHROMBIN TIME (PATIENT) 15.5 SEC (9.7-13.0)
[2020-09-29 08:18] LABS: POTASSIUM 3.8 mmol/L (3.5-5.1)
[2020-09-29 08:20] LABS: CALCIUM 8.8 mg/dL (8.5-10.1)
[2020-09-29 08:21] LABS: ALBUMIN 3.3 g/dl (3.4-5.0); BLOOD UREA NITROGEN 15.3 mg/dL (7-18); MAGNESIUM 2.2 mg/dL (1.8-2.4)
[2020-09-29 08:25] LABS: BILIRUBIN,TOTAL 0.6 mg/dL (0.2-1); TOT PROT 6.7 g/dl (6.4-8.2)
[2020-09-29] MEDS: TAMSULOSIN HCL 0.4 MG CAP PO SCH (10:25)
[2020-09-29] MEDS: LISINOPRIL 5 MG TABLET PO SCH (10:25)
[2020-09-29] MEDS: BUDESONIDE/FORMETEROL FUMARATE 80/4.5 mcg INHALER IH SCH ×2 (10:29→22:10)
[2020-09-29] MEDS: RIVAROXABAN 10 MG TABLET PO SCH (16:59)
[2020-09-29] MEDS ORDERED: METHADONE HCL 5 MG TABLET ONE (20:17)
[2020-09-29] MEDS ORDERED: METHADONE HCL 40 MG DISPERSABLE TABLET ONE (20:18)
[2020-09-29] MEDS ORDERED: METHADONE HCL 10 MG TABLET ONE (20:18)
[2020-09-29] MEDS: METHADONE 40 MG, METHADONE 10 MG, METHADONE 5 MG PO SCH (22:09)
[2020-09-29] MEDS: ATORVASTATIN CA 80 MG TABLET (FP) PO SCH (22:09)
[2020-09-30] MEDS: NAFCILLIN - 2 GM in DEXTROSE 5%-WATER - 100 ML IVPB SCH ×2 (02:14→10:03)
[2020-09-30] MEDS: ALBUTEROL SO4 HFA INHALER IH SCH ×3 (05:39→17:00)
[2020-09-30 06:37] LABS: BASO % 0.9 % (0-2.0); EOS % 2.6 % (0-4.5); HEMATOCRIT 38.9 % (35.4-49); LYMPH % 23.5 % (8-40); MCH 29.3 pg (25.7-33.7); MCHC 33.3 g/dl (32.0-35.9); MEAN CELL VOLUME 87.9 fl (80-96); MONO % 7.8 % (3.8-10.2); NEUT % 65.2 % (42.8-82.8); PLATELET COUNT 173 K/MM3 (134-434); RBC 4.43 M/mm3 (4.00-5.60); RDW 14.3 % (11.9-15.9); WHITE BLOOD COUNT 5.5 K/mm3 (4.0-10.0)
[2020-09-30] MEDS: INSULIN (LEVEMIR) 100 UNITS/ML UNITS SQ SCH (06:39)
[2020-09-30] MEDS: INSULIN SLIDING SCALE (NOVOLOG) 1 VIAL SQ SCH ×3 (06:39→16:21)
[2020-09-30 07:03] LABS: CALCIUM 8.7 mg/dL (8.5-10.1)
[2020-09-30 07:04] LABS: ALBUMIN 3.4 g/dl (3.4-5.0); BLOOD UREA NITROGEN 13.7 mg/dL (7-18); MAGNESIUM 2.2 mg/dL (1.8-2.4)
[2020-09-30 07:05] LABS: POTASSIUM 3.9 mmol/L (3.5-5.1)
[2020-09-30 07:09] LABS: BILIRUBIN,TOTAL 0.8 mg/dL (0.2-1)
[2020-09-30] MEDS: LISINOPRIL 5 MG TABLET PO SCH (09:00)
[2020-09-30] MEDS: TAMSULOSIN HCL 0.4 MG CAP PO SCH (09:00)
[2020-09-30] MEDS: BUDESONIDE/FORMETEROL FUMARATE 80/4.5 mcg INHALER IH SCH (09:00)
[2020-09-30] MEDS ORDERED: PT OWN MED DRAWER 7, Y5N ONE ×2 (10:56→16:08)
[2020-09-30] MEDS ORDERED: INSULIN (NOVOLOG) ASPART 100 UNITS/ML 10ML VIAL ONE (11:11)
[2020-09-30] MEDS ORDERED: CEFAZOLIN 1 GM in DEXTROSE 5%-WATER - 50 ML IVPB SCH (14:00)
[2020-09-30 15:57] VITALS: TEMP 97.7
[2020-09-30] MEDS ORDERED: ceFAZolin SODIUM 1 GM VIAL ONE (16:06)
[2020-09-30] MEDS ORDERED: DEXTROSE 5%-WATER - 50 ML IVPB ONE (16:07)
[2020-09-30] MEDS: RIVAROXABAN 10 MG TABLET PO SCH (17:00)
[2020-09-30] MEDS ORDERED: METHADONE HCL 10 MG TABLET ONE (21:09)
[2020-09-30] MEDS ORDERED: METHADONE HCL 5 MG TABLET ONE (21:09)
[2020-09-30] MEDS ORDERED: METHADONE HCL 40 MG DISPERSABLE TABLET ONE (21:10)
[2020-09-30] MEDS: METHADONE 40 MG, METHADONE 10 MG, METHADONE 5 MG PO SCH (21:16)
[2020-09-30] MEDS: ATORVASTATIN CA 80 MG TABLET (FP) PO SCH (21:16)
[2020-09-30 23:14] VITALS: BP 153/86; PULSE 60
== END 2020-09-30 21:11 | DRG 420 ==
LOC: JER 17:43 → JERBED 23:09 → J4W 09-15 02:18 → J7W 09-20 11:07
PROVIDERS: ADMIT Internal Medicine; ATTEND Nurse Practitioner Acute Care
PROC: 02HV33Z Insertion of Infusion Device into Superior Vena Cava, Percutaneous Approach (ICD-10-PCS; principal; 2020-09-30)
PROC: B548ZZA Ultrasonography of Superior Vena Cava, Guidance (ICD-10-PCS; 2020-09-30)
DX: E11.65 Type 2 diabetes mellitus with hyperglycemia (principal); A41.01 Sepsis due to Methicillin susceptible Staphylococcus aureus; N17.9 Acute kidney failure, unspecified; D61.818 Other pancytopenia; M62.82 Rhabdomyolysis; F11.20 Opioid dependence, uncomplicated; I80.8 Phlebitis and thrombophlebitis of other sites; E66.01 Morbid (severe) obesity due to excess calories; E87.1 Hypo-osmolality and hyponatremia; Z68.36 Body mass index [BMI] 36.0-36.9, adult; I10 Essential (primary) hypertension; E78.5 Hyperlipidemia, unspecified; B19.20 Unspecified viral hepatitis C without hepatic coma; K21.9 Gastro-esophageal reflux disease without esophagitis; N40.0 Benign prostatic hyperplasia without lower urinary tract symptoms; Z86.718 Personal history of other venous thrombosis and embolism; Z79.01 Long term (current) use of anticoagulants; Z86.711 Personal history of pulmonary embolism; E86.0 Dehydration; J45.909 Unspecified asthma, uncomplicated; G47.30 Sleep apnea, unspecified; I25.10 Atherosclerotic heart disease of native coronary artery without angina pectoris; Z91.14 Patient's other noncompliance with medication regimen; E87.6 Hypokalemia; K76.0 Fatty (change of) liver, not elsewhere classified; Z20.828 Contact with and (suspected) exposure to other viral communicable diseases; F32.9 Major depressive disorder, single episode, unspecified; F43.10 Post-traumatic stress disorder, unspecified; F40.240 Claustrophobia; F43.21 Adjustment disorder with depressed mood
CPT/HCPCS: 36415; 36569; 71045-TC-FY; 76705-TC; 76775-TC; 76882-TC-RT-FY; 80048; 80053; 80061; 80074; 80307; 81003; 82550; 82553; 82607; 82746; 82803; 82962; 83010; 83036; 83605; 83615; 83721; 83735; 83880; 84100; 84443; 84484; 85025; 85027; 85032; 85379; 85384; 85610; 85730; 87040; 87086; 87186; 87389; 93005; 93010; 93306-TC; 93970-TC; 93971; 97116-GP; 97161-GP; 99285-25; A9502; C9803; U0003